=== PATIENT | female | born 1980 | race Caucasian/White ===

== ENCOUNTER 2019-12-15 19:51 | Emergency (ER) | payer BC, OTHER ==
[~2019-12-15] VITALS: Ht 167.6 cm; Wt 65.6 kg
--- NOTE | 2019-12-15 20:32 | NUR ---
THIS IS A 39 YO FEMALE COMING IN FOR HEADACHE STARTING AT 1500, DENIES ANY SENSITIVITY TO LIGHT OR SOUND, "FEELS LIKE PRESSURE". LEFT PUPIL LARGER THAN RIGHT STARTED AT SAME TIME HEADACHE, BOTH PUPILS ARE ROUND AND REACTIVE TO LIGHT. C/O LEFT SIDED NECK PAIN NOT ASSOCIATED WITH HEADACHE, STARTED 2 MONTHS AGO AND PAIN INCREASES WITH STRESS. PATIENT STATES "I'VE ALSO HAD A LONGER PERIOD THAN USUAL, IT STARTED THE . AND ON THURSDAY I WAS PASSING LARGE CLOTS AND THERE WAS A LOT MORE BLOOD THAN USUAL, IT LOOKED LIKE WHAT I WOULD IMAGINE A MISCARRIAGE TO LOOK LIKE". DENIES ABD PAIN, PAIN WITH URINATION, STATES CLOTS NO LONGER PRESENT. DENIES N/V. SPO2 AND BP MONITORING IN PLACE, JEVON APARICIO AT THIS TIME. CALL LIGHT IN REACH.
[2019-12-15] MEDS ORDERED: SODIUM CHLORIDE FLUSH 10ML SYR IVF ONE (21:30)
--- NOTE | 2019-12-15 21:30 | NUR ---
PATIENT RESTING ON GURNEY, RESPIRATIONS EVEN AND UNLABORED, VSS, NADN
[2019-12-15 21:40] LABS: ALANINE AMINOTRANSFERASE 17 U/L (12-78); ALBUMIN 3.5 g/dL (3.4-5.0); ANION GAP 4 mmol/L (5-15); CALCIUM 8.1 mg/dL (8.5-10.1); CHLORIDE 111 mmol/L (98-107); CREATININE 1.04 mg/dL (0.55-1.02)
[2019-12-15 21:43] LABS: BASOPHILS # (AUTO) 0.02 x10^3/uL (0-0.1); BASOPHILS % (AUTO) 1 % (0-1); EOSINOPHILS # (AUTO) 0.05 x10^3/uL (0-0.4); EOSINOPHILS % (AUTO) 1 % (1-7); LYMPHOCYTES # (AUTO) 1.55 x10^3/uL (1-3.4); LYMPHOCYTES % (AUTO) 32 % (22-44); MD NO; MEAN CORPUSCULAR HEMOGLOBIN 31.2 pg (27.0-34.8); MEAN CORPUSCULAR HGB CONC 33.3 g/dL (32.4-35.8); MEAN CORPUSCULAR VOLUME 93.8 fL (80-100); MEAN PLATELET VOLUME 7.7 fL (7.4-10.4); MONOCYTES # (AUTO) 0.67 x10^3/uL (0.2-0.8); MONOCYTES % (AUTO) 14 % (2-9); NEUTROPHILS % (AUTO) 53 % (42-75); PLATELET COUNT 270 x10^3/uL (130-400); RED BLOOD COUNT 3.94 x10^6/uL (3.82-5.3); RED CELL DISTRIBUTION WIDTH 13.2 % (9.6-15.2)
[2019-12-15 21:44] LABS: ALKALINE PHOSPHATASE 37 U/L (45-117); BILIRUBIN,TOTAL 0.3 mg/dL (0.2-1.0); TOTAL PROTEIN 6.8 g/dL (6.4-8.2)
--- NOTE | 2019-12-15 22:00 | NUR ---
PIV PLACED FOR CT
--- NOTE | 2019-12-15 22:58 | NUR ---
PATIENT TO CT
[2019-12-15] MEDS ORDERED: OMNIPAQUE 350 MG/ML, 75ML BOTTLE ONE (23:13)
[2019-12-15 23:53] VITALS: BP 116/75
--- NOTE | 2019-12-16 00:03 | NUR ---
Patient given discharge instructions and they have confirmed that they understand the instructions. Patient ambulatory with steady gait.
== END 2019-12-16 00:03 | disposition home or self-care (01) ==
LOC: ED 22:01
DX: G44.219 Episodic tension-type headache, not intractable (principal); R94.31 Abnormal electrocardiogram [ECG] [EKG]
CPT/HCPCS: 36415; 70450; 70498; 80053; 84703; 85025; 93005; 99285; Q9967